=== PATIENT | male | born 1950 | race Caucasian/White ===

== ENCOUNTER 2019-04-14 00:35 | Day surgery (SDC) | payer MEDICARE, SELFPAY ==
[2019-04-06 12:32] VITALS: BMI 25.1
--- NOTE | 2019-04-13 10:49 | HP_ITS ---
DATE OF SERVICE: 04/14/2019 HISTORY: A 68-year-old who has a deviated septum for many years. He cannot breathe out of his nose. He snores loudly at night, he is on Plavix. REVIEW OF SYSTEMS: Unremarkable. Septum is deviated. PHYSICAL EXAMINATION: CHEST: Clear. HEART: Without murmurs. ABDOMEN: Soft. EXTREMITIES: Negative. PLAN: Stop his Plavix and set him up for a septoplasty. D I MT: Jimena
[2019-04-14] VITALS (9 sets, daily range): BP systolic 104–125; BP diastolic 53–70; PULSE 57–72; RESP 12–21; TEMP 36.4–36.6; O2SAT 98–100
--- NOTE | 2019-04-14 05:52 | WPDHPUPDATE1 ---
History and Physical Update Update Date/Time: 04/14/19 05:52 History and Physical has been reviewed, including an updated exam of the patient. There are NO changes in the patient's condition. Risks, benefits, and alternatives have been discussed and questions answered. Patient agrees to proceed with procedure.
[2019-04-14] MEDS: LACTATED RINGERS 1,000 ML 30 ML IV CONT (08:25)
--- NOTE | 2019-04-14 08:45 | P.PNAN_ITS ---
Anes - Initial Pre Proc Eval Procedure: Operation Date: 04/14/19 10:00 Proposed Procedures p Septoplasty - Keenan Gresham MD Date/Time: 04/14/19 08:45 Surgeon: Keenan Gresham MD Pre Op Diagnosis: nasal septal deviation Patient Data Age: 68 Gender: M Height: 5 ft 9 in Weight: 80.6 kg Allergies Allergy/AdvReac Type Severity Reaction Status Date / Time No Known Allergies Allergy Verified 04/14/19 08:12 Home Medications Medication Instructions Recorded Confirmed Type clopidogrel 75 mg tablet 75 mg PO DAILY 02/18/19 04/14/19 History metoprolol succinate 50 mg 50 mg PO DAILY 02/18/19 04/14/19 History tablet,extended release 24 hr niacin 1,000 mg tablet,extended 1,000 mg PO ONCE 02/18/19 04/14/19 History release 24 hr rosuvastatin 20 mg tablet 20 mg PO DAILY 02/18/19 04/14/19 History Patient hx anesthesia problems: none Family hx anesthesia problems: none [facility] Past Medical History Medical History (Updated 04/14/19 @ 08:46 by Scott Todd MD) Smoker Tobacco abuse Family History Family History Sibling Patient's sister is in good health Mother Family history of heart disease in male family member before age 55, Onset Age: 71 Patient's mother is Family history of cardiovascular disease Father Patient's father is Acute myocardial infarction Social History Social History Smoking status: Current every day smoker Alcohol intake: current Anes - Eval Final PreProcedure Day of Procedure 04/14/19 08:45 Patient weight: overweight Heart: regular rate and rhythm Lungs: decreased breath sounds Airway: Mallampati scale class 1 Neurological: alert and oriented Last oral intake: >/= 8 hours ASA classification: III Emergent: no Anesthetic plan: proceed Anesthesia type and monitoring: general ETT and standard monitoring Informed Consent: The patient's anesthetic plan and its attendant risks and benefits were discussed with the patient/family/POA. Questions were solicited and answers provided to the satisfaction of the patient/family/POA.
[2019-04-14] MEDS: METOPROLOL TARTRATE INJ 5 MG/5 ML VIAL 2.5 MG IV PUSH (08:56)
[2019-04-14] MEDS: LIDO 1%/EPINEPHRINE 1:100,000 20 ML VIAL INFILTRATE (10:07)
--- NOTE | 2019-04-14 10:21 | PM.OP ---
Procedure Note - Brief Procedure Note - Brief Date of procedure: 04/14/19 Pre-op diagnosis: nasal septal deviation Post-op diagnosis: same Procedure performed: Patient was prepped and draped in usual fashion after general anesthesia. The nose was injected with xylocaine with Adrenalin and packed with Neosporin Braydon-Synephrine on cottonoids. A right nancy transfixation was made anterior and posterior tunnel was elevated. The bony cartilage junction . The bony deviation was removed in its entirety. The middle turbinates were then medialized and uncinectomy was done on both sides the ethmoid bulla was opened with micro debride her. Tissue was removed the natural ostia of the maxillary sinus was opened and tissue was removed the nose was then packed with Surgicel patient awakened returned to recovery good condition. Anesthesia: GETA Surgeon: Keenan Gresham MD Packing: Yes Pathology: none sent Complications: No immediate complications Condition: stable Disposition: same day
== END 2019-04-14 11:47 | disposition home or self-care (01) ==
PROVIDERS: PCP Internal Medicine; Visit Provider Otolaryngology
PROC: (CPT 30520; principal; 2019-04-14 10:00)
DX: J34.2 Deviated nasal septum (principal); F17.210 Nicotine dependence, cigarettes, uncomplicated; Z79.02 Long term (current) use of antithrombotics/antiplatelets
CPT/HCPCS: 30520; A9270; J0131; J0330; J1100; J2250; J2405; J2704; J3010; J7120

== ENCOUNTER 2019-04-19 08:16 | Emergency (ER) | payer MEDICARE, SELFPAY ==
[2019-04-19 08:24] VITALS: BP 132/72; PULSE 70; RESP 18; TEMP 37.1; O2SAT 100
--- NOTE | 2019-04-19 08:25 | ED.EPISTAXIS ---
HPI - Epistaxis General Chief complaint: Epistaxis Stated complaint: PERSISTENT EPISTAXIS S/P SURGERY Source: patient Mode of arrival: ambulatory Limitations: no limitations History of Present Illness HPI Narrative: A 68 y/o male presents to the ED with c/o epistaxis. Pt states that the epistaxis started at 0500 this morning and has been constant since. He adds that he had a nasal surgery yesterday. Pt has a PMHx of [place], hyperlipidemia, HTN, and cardiac catheterization and is currently on a blood thinner. complaint: epistaxis Onset (ago): hour(s) (3.5) Duration: constant Context: recent surgery/procedure (Nasal surgery) Related Data Home Medications Medication Instructions Recorded Confirmed clopidogrel 75 mg tablet 75 mg PO DAILY 02/18/19 04/14/19 metoprolol succinate 50 mg 50 mg PO DAILY 02/18/19 04/14/19 tablet,extended release 24 hr niacin 1,000 mg tablet,extended 1,000 mg PO ONCE 02/18/19 04/14/19 release 24 hr rosuvastatin 20 mg tablet 20 mg PO DAILY 02/18/19 04/14/19 Allergies Allergy/AdvReac Type Severity Reaction Status Date / Time No Known Allergies Allergy Verified 04/19/19 08:28 Review of Systems Review of Systems: All systems reviewed & are unremarkable except as noted in HPI and below ENT: Reports epistaxis PMFSH Past Medical History Medical History (Updated 04/19/19 @ 08:28 by Karrie Pinzon) Atherosclerotic heart disease of [place] coronary artery without angina pectoris Bronchitis Enlarged prostate without lower urinary tract symptoms (luts) Erectile dysfunction Essential (primary) hypertension Finger fracture GERD without esophagitis Heart attack History of TIA (transient ischemic attack) Hyperlipidemia Smoker Tobacco abuse Wrist fracture Surgical History Surgical History (Updated 04/19/19 @ 08:28 by Karrie Pinzon) History of cardiac catheterization History of tonsillectomy S/P CABG x 3 Family History Family History Sibling Patient's sister is in good health Mother Family history of heart disease in male family member before age 55, Onset Age: 71 Patient's mother is Family history of cardiovascular disease Father Patient's father is Acute myocardial infarction Social History Social History (Updated 04/19/19 @ 08:30 by Karrie Pinzon) Smoking packs per day: 1 Smoking cigarettes per day: 20.0 Smoking status: Former smoker Tobacco type: cigarettes Second hand tobacco smoke exposure: Yes Smoking end date: 03/18/73 Alcohol intake: current Gender identity (if verbalized by the patient): Male Course Vital Signs Vital signs: Vital Signs Temperature 37.1 C 04/19/19 08:24 Pulse Rate 70 04/19/19 08:24 Respiratory Rate 18 04/19/19 08:24 Blood Pressure 132/72 04/19/19 08:24 Pulse Oximetry 100 04/19/19 08:24 Temperature 37.1 C 04/19/19 08:24 Pulse Rate 70 04/19/19 08:24 Respiratory Rate 18 04/19/19 08:24 Blood Pressure 132/72 04/19/19 08:24 Pulse Oximetry 100 04/19/19 08:24 Discharge Plan Discharge Prescriptions: No Action clopidogrel 75 mg tablet 75 mg PO DAILY RF: 0 metoprolol succinate 50 mg tablet extended release 24 hr 50 mg PO DAILY RF: 0 niacin [Niaspan Extended-Release] 1,000 mg tablet extended release 24 hr 1,000 mg PO ONCE RF: 0 rosuvastatin 20 mg tablet 20 mg PO DAILY RF: 0 acetaminophen-codeine 300-30 mg tablet 1 tablet PO Q6H PRN (Reason: pain) Qty: 30 RF: 0
--- NOTE | 2019-04-19 09:45 | ED.EPISTAXIS ---
HPI - Epistaxis General Chief complaint: Epistaxis Stated complaint: PERSISTENT EPISTAXIS S/P SURGERY Time Seen by Provider: 04/19/19 09:02 Source: patient Mode of arrival: ambulatory Limitations: no limitations History of Present Illness HPI Narrative: This is a 68 year old male that presents to the ER for epistaxis since 5 this morning. Reports when he woke up he noticed that his nose was bleeding. Reports he was unable to get the bleeding under control so he came to the ED. Reports he recently had his septum repaired by Dr. Gresham 5 days ago. Reports he re-started his Plavix yesterday and did blow his nose once. Denies fevers. Related Data Home Medications Medication Instructions Recorded Confirmed clopidogrel 75 mg tablet 75 mg PO DAILY 02/18/19 04/14/19 metoprolol succinate 50 mg 50 mg PO DAILY 02/18/19 04/14/19 tablet,extended release 24 hr niacin 1,000 mg tablet,extended 1,000 mg PO ONCE 02/18/19 04/14/19 release 24 hr rosuvastatin 20 mg tablet 20 mg PO DAILY 02/18/19 04/14/19 Allergies Allergy/AdvReac Type Severity Reaction Status Date / Time No Known Allergies Allergy Verified 04/19/19 08:28 Review of Systems Review of Systems: Narrative: CONSTITUTIONAL: Denies fever ENT: Reports epistaxis, congestion All systems reviewed & are unremarkable except as noted in HPI and below PMFSH Past Medical History Medical History (Updated 04/19/19 @ 14:38 by Esther Littlejohn PA-C) Atherosclerotic heart disease of [place] coronary artery without angina pectoris Bronchitis Enlarged prostate without lower urinary tract symptoms (luts) Erectile dysfunction Essential (primary) hypertension Finger fracture GERD without esophagitis Heart attack History of TIA (transient ischemic attack) Hyperlipidemia Smoker Tobacco abuse Wrist fracture Surgical History Surgical History (Updated 04/19/19 @ 08:28 by Karrie Pinzon) History of cardiac catheterization History of tonsillectomy S/P CABG x 3 Family History Family History Sibling Patient's sister is in good health Mother Family history of heart disease in male family member before age 55, Onset Age: 71 Patient's mother is Family history of cardiovascular disease Father Patient's father is Acute myocardial infarction Social History Social History (Updated 04/19/19 @ 08:30 by Karrie Pinzon) Smoking packs per day: 1 Smoking cigarettes per day: 20.0 Smoking status: Former smoker Tobacco type: cigarettes Second hand tobacco smoke exposure: Yes Smoking end date: 03/18/73 Alcohol intake: current Gender identity (if verbalized by the patient): Male Exam Narrative: Exam Narrative: GENERAL: Well-appearing, well-nourished, and in no acute distress. HEAD: Normocephalic, atraumatic. EYES: EOMI. ENT: Right-sided epistaxis. Mucous membranes moist. Mild amount of blood in the posterior oropharynx NECK: Supple. No adenopathy or masses. EXTREMITIES: Normal range of motion. No edema. SKIN: Warm, dry, no rash. NEURO: No focal deficits. Alert and oriented x3. PSYCH: Normal mood and affect Course Consultations Consultation #1: Spoke with Dr. Gresham about patient work-up who will see him in clinic tomorrow Date: 04/19/19 Time: 14:35 Vital Signs Vital signs: Vital Signs Temperature 98.8 F 04/19/19 08:24 Pulse Rate 70 04/19/19 08:24 Respiratory Rate 18 04/19/19 08:24 Blood Pressure 132/72 04/19/19 08:24 Pulse Oximetry 100 04/19/19 08:24 Temperature 98.8 F 04/19/19 08:24 Pulse Rate 79 04/19/19 13:18 Respiratory Rate 18 04/19/19 13:18 Blood Pressure 139/63 04/19/19 13:18 Pulse Oximetry 98 04/19/19 13:18 Procedures Epistaxis Control right: Epistaxis Control Date: 04/19/19 Epistaxis Control Time: 14:13 Time Out Performed: Yes Nose Prepped With: oxymetazoline Direct Inspection: unable to visualize
[2019-04-19 09:51] LABS: Basophils Percent Auto 0.4 % (0.2-1.2); Eosinophils Absolute Auto 0.1 K/mm3 (0-0.3); Hematocrit 43.9 % (42.0-52.0); Hemoglobin 14.4 g/dL (14.0-18.0); Immature Granulocyte Absolute 0.03 K/mm3 (0.00-0.031); Immature Granulocyte Percent A 0.3 % (0-0.5); Lymphocytes Absolute Auto 1.27 K/mm3 (0.9-3.2); Lymphocytes Percent Auto 13.8 % (18.3-44.2); Mean Corpuscular HGB Conc 32.8 g/dl (32-36); Mean Corpuscular Hemoglobin 31.6 pg (26-34); Mean Corpuscular Volume 96.3 fl (80-100); Mean Platelet Volume 10.1 fl (7.4-10.4); Monocytes Absolute Auto 0.6 K/mm3 (0.1-0.6); Monocytes Percent Auto 6.8 % (2.6-8.5); Neutrophils Absolute Auto 7.1 K/mm3 (1.3-6.7); Neutrophils Percent Auto 77.7 % (45.5-73.1); Platelet Count Result 213 k/mm3 (150-375); Red Blood Count 4.56 M/mm3 (4.6-6.20); Red Cell Distribution Width 12.7 % (11.5-14.5); White Blood Count 9.2 K/mm3 (4.5-10.0)
[2019-04-19 09:58] LABS: Prothrombin Time 12.7 Seconds (11.1-14.7)
[2019-04-19 09:59] LABS: Partial Thromboplastin Time 27.5 SECONDS (22.3-36.8)
[2019-04-19 10:10] VITALS: BP 124/60; PULSE 72; RESP 16; O2SAT 95
[2019-04-19 13:18] VITALS: BP 139/63; PULSE 79; RESP 18; O2SAT 98
--- NOTE | 2019-04-19 13:19 | PC.NURSE ---
Esther placing 2nd Rhino rocket at this time
[2019-04-19 14:58] VITALS: BP 135/65; PULSE 77; RESP 18; O2SAT 99
== END 2019-04-19 14:59 | disposition home or self-care (01) ==
PROVIDERS: Physician Assistant; Emergency Provider Emergency Medicine; PCP Internal Medicine
DX: R04.0 Epistaxis (principal); N40.1 Benign prostatic hyperplasia with lower urinary tract symptoms; I10 Essential (primary) hypertension; E78.5 Hyperlipidemia, unspecified; K21.9 Gastro-esophageal reflux disease without esophagitis; I25.2 Old myocardial infarction; Z86.73 Personal history of transient ischemic attack (TIA), and cerebral infarction without residual deficits; Z95.1 Presence of aortocoronary bypass graft; Z79.02 Long term (current) use of antithrombotics/antiplatelets; Z98.890 Other specified postprocedural states; I25.10 Atherosclerotic heart disease of native coronary artery without angina pectoris
CPT/HCPCS: 30903; 36415; 85025; 85610; 85730; 99283; A9270

== ENCOUNTER 2019-04-19 23:27 | Emergency (ER) | payer MEDICARE, SELFPAY ==
[2019-04-19 23:29] VITALS: BP 131/68; PULSE 100; RESP 18; TEMP 36.7; O2SAT 99
[2019-04-20 00:43] VITALS: BP 121/67; PULSE 106; RESP 18; O2SAT 99
--- NOTE | 2019-04-20 00:53 | ED.EPISTAXIS ---
HPI - Epistaxis General Chief complaint: Epistaxis Stated complaint: nose bleed Time Seen by Provider: 04/20/19 00:55 Source: patient and RN notes reviewed Mode of arrival: ambulatory Limitations: no limitations History of Present Illness HPI Narrative: Pt is a 68 y/o male who presents to the ED with c/o epistaxis which began at 2200 tonight. Pt states he has had nasal surgery done yesterday at [facility]. He reports he woke up at 0500 this morning with an epistaxis that was not alleviated throughout the day. Pt states he was seen at [place] ED at 0824 this morning for the epistaxis. A b/l nasal packing was set in place and the pt was discharged. However, the pt reports he began to experience the epistaxis again at 2200 tonight, due to him sneezing out one of the packings in his nasal cavity. Pt reports he stopped taking his anticoagulants a week before his surgery 6 days ago. He states he started taking the anticoagulants the day after his surgery. Pt reports lightheadedness and vomiting. He denies any bleeding currently in the ED bed. complaint: epistaxis Location: bilateral nostril Onset (ago): hour(s) (2200 tonight) Duration: constant Context: other (post-surgical complication) Associated symptoms: vomiting and other (lightheadedness) Treatment prior to arrival: other (nasal packing in place in the right nostril) Related Data Home Medications Medication Instructions Recorded Confirmed clopidogrel 75 mg tablet 75 mg PO DAILY 02/18/19 04/14/19 metoprolol succinate 50 mg 50 mg PO DAILY 02/18/19 04/14/19 tablet,extended release 24 hr niacin 1,000 mg tablet,extended 1,000 mg PO ONCE 02/18/19 04/14/19 release 24 hr rosuvastatin 20 mg tablet 20 mg PO DAILY 02/18/19 04/14/19 Allergies Allergy/AdvReac Type Severity Reaction Status Date / Time No Known Allergies Allergy Verified 04/19/19 08:28 Review of Systems Review of Systems: All systems reviewed & are unremarkable except as noted in HPI and below ENT: Reports epistaxis Gastrointestinal: Gastrointestinal: Reports vomiting Neurologic: Reports other (lightheadedness) [facility] Past Medical History Medical History (Updated 04/20/19 @ 03:15 by Dedrick Salamanca MD) Atherosclerotic heart disease of [place] coronary artery without angina pectoris Bronchitis Enlarged prostate without lower urinary tract symptoms (luts) Erectile dysfunction Essential (primary) hypertension Finger fracture GERD without esophagitis Heart attack History of TIA (transient ischemic attack) Hyperlipidemia Smoker Tobacco abuse Wrist fracture Surgical History Surgical History (Updated 04/19/19 @ 08:28 by Karrie Pinzon) History of cardiac catheterization History of tonsillectomy S/P CABG x 3 Social History Social History (Updated 04/19/19 @ 08:30 by Karrie Pinzon) Smoking packs per day: 1 Smoking cigarettes per day: 20.0 Smoking status: Former smoker Tobacco type: cigarettes Second hand tobacco smoke exposure: Yes Smoking end date: 03/18/73 Alcohol intake: current Gender identity (if verbalized by the patient): Male Exam Narrative: Exam Narrative: Constitutional: Healthy appearing, no acute distress, well nourished. HENMT: Lips normal, moist mucous membranes. Dried blood in both nostrils. Nasal packing in place in right nostril. Eyes: Conjunctive normal, PERRL Resp: Normal respiratory effect, clear to auscultation bilaterally. Cardio: Regular rate, rhythm, no murmurs. GI: Soft, non-tender, normal bowel sounds. Back/Spine/Pelvis: Full ROM Skin: Normal color, dry skin, warm Neuro: Oriented x 3, alert, normal speech Extremities: Full ROM Psych: Mental status grossly normal, normal affect. Course Vital Signs Vital signs: Vital Signs Temperature 36.7 C 04/19/19 23:29 Pulse Rate 100 04/19/19 23:29 Respiratory Rate 18 04/19/19 23:29 Blood Pressure 131/68 04/19/19 23:29 Pulse Oximetry 99 04/19/19 23:29 Temperature 36.7 C
[2019-04-20 01:28] VITALS: BP 123/68; PULSE 93; RESP 16; O2SAT 98
[2019-04-20 02:10] VITALS: BP 135/82; PULSE 99; RESP 18; O2SAT 98
--- NOTE | 2019-04-20 03:10 | PC.NURSE ---
pt states his nose is in 9/10 pain at this time. md notified.
[2019-04-20 03:30] VITALS: BP 123/54; PULSE 72; RESP 16; TEMP 36.7; O2SAT 99
== END 2019-04-20 03:32 | disposition home or self-care (01) ==
PROVIDERS: Emergency Provider Emergency Medicine; PCP Internal Medicine
DX: R04.0 Epistaxis (principal); Z98.890 Other specified postprocedural states; I10 Essential (primary) hypertension; E78.5 Hyperlipidemia, unspecified; K21.9 Gastro-esophageal reflux disease without esophagitis; I25.10 Atherosclerotic heart disease of native coronary artery without angina pectoris; I25.2 Old myocardial infarction; Z86.73 Personal history of transient ischemic attack (TIA), and cerebral infarction without residual deficits; Z95.1 Presence of aortocoronary bypass graft; N40.1 Benign prostatic hyperplasia with lower urinary tract symptoms; Z87.891 Personal history of nicotine dependence; Z79.01 Long term (current) use of anticoagulants
CPT/HCPCS: 30901; 30903; 36415; 85025; 85610; 85730; 99283; A9270

== ENCOUNTER 2019-08-18 07:48 | Outpatient (CLI) | payer MEDICARE, SELFPAY ==
[2019-08-18 08:42] LABS: LDL Cholesterol Direct 60 mg/dL
[2019-08-18 08:54] LABS: Alanine Aminotransferase 28 U/L (4-50); Albumin Level 4.6 g/dL (3.5-5.1); Alkaline Phosphatase 92 U/L (38-126); Aspartate Amino Transferase 37 U/L (17-59); Bilirubin,Total 1.3 mg/dL (0.2-1.3); Blood Urea Nitrogen 7 mg/dL (9-20); Carbon Dioxide 25 mmol/L (22-30); Chloride 100 mmol/L (98-107); Cholesterol 132 mg/dL (0-200); Estimated Glomerular Filt Rate > 60; Glucose 113 mg/dL (75-110); HDL Direct 55 mg/dL; Potassium 4.2 mmol/L (3.4-5.0); Sodium 133 mmol/L (137-145); Triglycerides 86 mg/dL (<150)
[2019-08-18 09:01] LABS: Prostate Specific Antigen 2.5 ng/mL (< OR = 4.0)
== END 2019-08-18 07:49 | disposition home or self-care (01) ==
LOC: ANHLAB 07:52
PROVIDERS: PCP Internal Medicine; Visit Provider Internal Medicine
DX: I25.10 Atherosclerotic heart disease of native coronary artery without angina pectoris (principal); Z51.81 Encounter for therapeutic drug level monitoring; E78.5 Hyperlipidemia, unspecified; Z12.5 Encounter for screening for malignant neoplasm of prostate
CPT/HCPCS: 36415; 80053; 80061; 84153; G0103

== ENCOUNTER 2020-02-26 07:22 | Outpatient (CLI) | payer MEDICARE, SELFPAY ==
[2020-02-26 08:10] LABS: Alanine Aminotransferase 38 U/L (4-50); Albumin Level 4.3 g/dL (3.5-5.1); Alkaline Phosphatase 70 U/L (38-126); Anion Gap 5 mmol/L (8-16); Aspartate Amino Transferase 38 U/L (17-59); Bilirubin,Total 0.9 mg/dL (0.2-1.3); Blood Urea Nitrogen 9 mg/dL (9-20); Calcium 9.4 mg/dL (8.4-10.2); Carbon Dioxide 31 mmol/L (22-30); Chloride 100 mmol/L (98-107); Cholesterol 163 mg/dL (0-200); Estimated Glomerular Filt Rate > 60; Glucose 103 mg/dL (75-110); HDL Direct 49 mg/dL; Potassium 4.4 mmol/L (3.4-5.0); Sodium 136 mmol/L (137-145); Triglycerides 146 mg/dL (<150)
[2020-02-26 08:21] LABS: LDL Cholesterol Direct 91 mg/dL
== END 2020-02-26 07:23 | disposition home or self-care (01) ==
PROVIDERS: PCP Internal Medicine; Visit Provider Internal Medicine
DX: Z51.81 Encounter for therapeutic drug level monitoring (principal); I10 Essential (primary) hypertension; E78.5 Hyperlipidemia, unspecified
CPT/HCPCS: 36415; 80053; 80061

== ENCOUNTER 2020-03-03 14:33 | Outpatient (CLI) | payer MEDICARE, SELFPAY ==
--- NOTE | ~2020-03-03 | CT_ITS ---
EXAMINATION: CT lung screening DATE: 03/03/2020 14:48 INDICATION: Personal history of nicotine dependence TECHNIQUE: Computed tomography (CT) of the chest was performed without intravenous contrast. The dose -length product was 114.67 mGy-cm. Automated exposure control and iterative reconstruction technique were employed. COMPARISON: None FINDINGS: There is atherosclerosis. Status post median sternotomy for CABG. No significant pleural or pericardial effusion. No thoracic lymphadenopathy. There is a 4 mm right upper lobe nodule, image 18. No endobronchial lesions. There is a 2 mm fissural nodule, axial image 61. There is a 2 mm left apical nodule, image 11. No focal airspace disease. No pneumothorax. Mild emphysema. No acute osseous abnormality. No sclerotic or lytic lesions are identif ied. IMPRESSION: 1. Lung-RADS category 2: Benign appearance or behavior. Continue annual screening with noncontrast lo w-dose chest CT in 12 months. Reviewed, dictated and finalized at location A. [employer]ER IMPRESSION: 1. Lung-RADS category 2: Benign appearance or behavior. Continue annual screeni ng with noncontrast low-dose chest CT in 12 months.
== END 2020-03-03 14:34 | disposition home or self-care (01) ==
PROVIDERS: PCP Internal Medicine; Visit Provider Nurse Practitioner
DX: Z12.2 Encounter for screening for malignant neoplasm of respiratory organs (principal); Z87.891 Personal history of nicotine dependence
CPT/HCPCS: G0297

== ENCOUNTER 2020-08-29 08:29 | Outpatient (CLI) | payer MEDICARE, SELFPAY ==
[2020-08-29 09:07] LABS: Alanine Aminotransferase 29 U/L (4-50); Albumin Level 4.4 g/dL (3.5-5.1); Alkaline Phosphatase 69 U/L (38-126); Anion Gap 9 mmol/L (8-16); Aspartate Amino Transferase 36 U/L (17-59); Bilirubin,Total 1.1 mg/dL (0.2-1.3); Blood Urea Nitrogen 8 mg/dL (9-20); Calcium 9.4 mg/dL (8.4-10.2); Carbon Dioxide 27 mmol/L (22-30); Chloride 103 mmol/L (98-107); Cholesterol 162 mg/dL (0-200); Estimated Glomerular Filt Rate > 60; Glucose 110 mg/dL (75-110); HDL Direct 54 mg/dL; Potassium 4.4 mmol/L (3.4-5.0); Sodium 139 mmol/L (137-145); Triglycerides 155 mg/dL (<150)
[2020-08-29 09:17] LABS: LDL Cholesterol Direct 75 mg/dL
[2020-08-29 09:37] LABS: Prostate Specific Antigen 1.9 ng/mL (< OR = 4.0)
== END 2020-08-29 08:30 | disposition home or self-care (01) ==
PROVIDERS: PCP Internal Medicine; Visit Provider Nurse Practitioner
DX: E78.5 Hyperlipidemia, unspecified (principal); Z12.5 Encounter for screening for malignant neoplasm of prostate
CPT/HCPCS: 36415; 80053; 80061; 84153; G0103

== ENCOUNTER 2021-03-02 10:13 | Outpatient (CLI) | payer MEDICARE, SELFPAY ==
[2021-03-02 10:51] LABS: Alanine Aminotransferase 34 U/L (4-50); Albumin Level 4.6 g/dL (3.5-5.1); Alkaline Phosphatase 85 U/L (38-126); Anion Gap 4 mmol/L (8-16); Aspartate Amino Transferase 31 U/L (17-59); Bilirubin,Total 0.7 mg/dL (0.2-1.3); Blood Urea Nitrogen 6 mg/dL (9-20); Calcium 9.4 mg/dL (8.4-10.2); Carbon Dioxide 27 mmol/L (22-30); Chloride 100 mmol/L (98-107); Cholesterol 172 mg/dL (0-200); Estimated Glomerular Filt Rate > 60; Glucose 111 mg/dL (65-110); HDL Direct 47 mg/dL; Potassium 4.2 mmol/L (3.4-5.0); Sodium 131 mmol/L (137-145); Triglycerides 262 mg/dL (<150)
[2021-03-02 11:02] LABS: LDL Cholesterol Direct 84 mg/dL
== END 2021-03-02 10:14 | disposition home or self-care (01) ==
PROVIDERS: PCP Internal Medicine; Visit Provider Internal Medicine
DX: E78.5 Hyperlipidemia, unspecified (principal); I10 Essential (primary) hypertension; Z51.81 Encounter for therapeutic drug level monitoring
CPT/HCPCS: 36415; 80053; 80061

== ENCOUNTER 2021-09-08 10:09 | Outpatient (CLI) | payer MEDICARE, SELFPAY ==
[2021-09-08 10:50] LABS: Alanine Aminotransferase 28 U/L (6-50); Albumin Level 4.4 g/dL (3.5-5.1); Alkaline Phosphatase 82 U/L (38-126); Anion Gap 7 mmol/L (8-16); Aspartate Amino Transferase 27 U/L (17-59); Bilirubin,Total 0.7 mg/dL (0.2-1.3); Blood Urea Nitrogen 10 mg/dL (9-20); Calcium 9.1 mg/dL (8.4-10.2); Carbon Dioxide 25 mmol/L (22-30); Chloride 104 mmol/L (98-107); Cholesterol 172 mg/dL (0-200); Estimated Glomerular Filt Rate > 60; Glucose 111 mg/dL (65-110); HDL Direct 51 mg/dL; Potassium 4.2 mmol/L (3.4-5.0); Sodium 136 mmol/L (137-145); Triglycerides 172 mg/dL (<150)
[2021-09-08 11:01] LABS: LDL Cholesterol Direct 86 mg/dL
[2021-09-08 11:21] LABS: Prostate Specific Antigen 2.1 ng/mL (< OR = 4.0)
== END 2021-09-08 10:10 | disposition home or self-care (01) ==
LOC: ANHLAB 10:16
PROVIDERS: PCP Internal Medicine; Visit Provider Nurse Practitioner
DX: E78.5 Hyperlipidemia, unspecified (principal); N40.0 Benign prostatic hyperplasia without lower urinary tract symptoms
CPT/HCPCS: 36415; 80053; 80061; 84153

== ENCOUNTER 2022-03-16 09:21 | Outpatient (CLI) | payer MEDICARE, SELFPAY ==
[2022-03-16 10:15] LABS: Alanine Aminotransferase 45 U/L (6-50); Albumin Level 4.5 g/dL (3.5-5.1); Alkaline Phosphatase 90 U/L (38-126); Anion Gap 8 mmol/L (8-16); Aspartate Amino Transferase 34 U/L (17-59); Blood Urea Nitrogen 8 mg/dL (9-20); Carbon Dioxide 27 mmol/L (22-30); Chloride 100 mmol/L (98-107); Cholesterol 156 mg/dL (0-200); Estimated Glomerular Filt Rate > 60; Glucose 113 mg/dL (65-110); HDL Direct 42 mg/dL; Potassium 4.5 mmol/L (3.4-5.0); Sodium 135 mmol/L (137-145); Triglycerides 191 mg/dL (<150)
[2022-03-16 10:26] LABS: LDL Cholesterol Direct 76 mg/dL
[2022-03-16 10:48] LABS: Hemoglobin A1C 5.9 % (<5.7)
== END 2022-03-16 09:22 | disposition home or self-care (01) ==
LOC: ANHLAB 09:23
PROVIDERS: PCP Internal Medicine; Visit Provider Nurse Practitioner
DX: E78.5 Hyperlipidemia, unspecified (principal); R73.01 Impaired fasting glucose
CPT/HCPCS: 36415; 80053; 80061; 83036

== ENCOUNTER 2022-09-20 09:40 | Outpatient (CLI) | payer MEDICARE, SELFPAY ==
[2022-09-20 10:44] LABS: Alanine Aminotransferase 50 U/L (6-50); Albumin Level 4.4 g/dL (3.5-5.1); Alkaline Phosphatase 66 U/L (38-126); Anion Gap 6 mmol/L (8-16); Aspartate Amino Transferase 37 U/L (17-59); Bilirubin,Total 1.1 mg/dL (0.2-1.3); Blood Urea Nitrogen 7 mg/dL (9-20); Calcium 8.9 mg/dL (8.4-10.2); Carbon Dioxide 27 mmol/L (22-30); Chloride 100 mmol/L (98-107); Cholesterol 152 mg/dL (0-200); Estimated Glomerular Filt Rate > 60; Glucose 104 mg/dL (65-110); HDL Direct 38 mg/dL; Potassium 3.9 mmol/L (3.4-5.0); Sodium 133 mmol/L (137-145); Triglycerides 209 mg/dL (<150)
[2022-09-20 10:47] LABS: Hemoglobin A1C 5.8 % (<5.7)
[2022-09-20 10:54] LABS: LDL Cholesterol Direct 80 mg/dL
[2022-09-20 11:15] LABS: Prostate Specific Antigen 2.2 ng/mL (< OR = 4.0)
== END 2022-09-20 09:41 | disposition home or self-care (01) ==
PROVIDERS: PCP Internal Medicine; Visit Provider Nurse Practitioner
DX: E78.5 Hyperlipidemia, unspecified (principal); E11.9 Type 2 diabetes mellitus without complications; Z12.5 Encounter for screening for malignant neoplasm of prostate
CPT/HCPCS: 36415; 80053; 80061; 83036; 84153; G0103

== ENCOUNTER 2022-10-05 09:33 | Outpatient (CLI) | payer MEDICARE, SELFPAY ==
--- NOTE | ~2022-10-05 | CT_ITS ---
CT Scan of the Chest without Contrast: Clinical Indication: Lung cancer screening, personal history of nicotine dependence Technique: Contiguous sections were acquired throughout the chest without intravenous contrast. Dose reduction technique was used on this scan by utilizing automated exposure control and iterative recon struction technique. The dose-length product (DLP) was 170.47 mGy-cm. COMPARISON: 03/03/2020 Findings: There is no evidence of any significant mediastinal, hilar or axillary lymphadenopathy. There atheros clerotic changes of the aorta and coronary arteries. There is no evidence of pleural or pericardial effusion. Stable 3 mm right apical pulmonary nodule. No new pulmonary nodule identified. Images through the upper abdomen reveal no abnormalities. Impression: Lung RADS 2: Benign appearance. 12 month follow-up screening CT advised. Reviewed, dictated and finalized at [facility]. Impression: Lung RADS 2: Benign appearance. 12 month follow-up screening CT advised.
== END 2022-10-05 09:34 | disposition home or self-care (01) ==
PROVIDERS: PCP Internal Medicine; Visit Provider Family Medicine
DX: Z12.2 Encounter for screening for malignant neoplasm of respiratory organs (principal); Z87.891 Personal history of nicotine dependence
CPT/HCPCS: 71271

== ENCOUNTER 2022-11-07 10:00 | Outpatient (RCR) | payer MEDICARE, SELFPAY ==
--- NOTE | 2022-10-09 11:59 | OPREHPOC ---
Outpatient Therapy Plan of Care This is a Multidisciplinary Plan of Care that may contain components documented by all disciplines (PT, OT, and ST.) PT Problem 1 PT Problem #1 Knowledge Deficit PT Goal 1 Goal Independent with HEP Target Visit 8 PT Problem 2 PT Problem #2 Pain PT Goal 1 Goal decrease pain to no worse than 4/10 Target Visit 8 PT Goal 2 Goal centralization of all pain Target Visit 8 PT Problem 3 PT Problem #3 Impaired Range of Motion PT Goal 1 Goal increase cervical flexion and extension to 30 degrees Target Visit 8 PT Goal 2 Goal Increase JENNIFER rotation to 65 degrees Target Visit 8 PT Problem 4 PT Problem #4 Impaired Strength PT Goal 1 Goal Increase JENNIFER scapular strength to 4+/5 Target Visit 8
--- NOTE | 2022-10-09 11:59 | PTOPEVAL1 ---
Assessment and note entered by Marco Law, PT Evaluation Information Assessment Status Evaluation Diagnosis other muscle spasm, pain in thoracic spine Onset 1 year ago, increasing in symptoms 1 month ago Subjective Information Patient reports 1 year ago waking up with a stiff neck and did not think much of it, but it has not gone away and now it is going down the R arm on occasion into the scapula and down his spine. Patient reports pain increases with long rides in cars and when sitting in a chair where the arm is not supported at the right height. States no weakness or N/T and is using Tylenol and Hempvana which both help, but the relief does not last. No imaging done yet on the neck or shoulder. Patient has decreased vision and cannot drive. Reported Pain Level Pain Score 8: Self Report Assessment PT Clinical Summary Antione is a 72 year old male coming into the clinic with a diagnosis of muscle spasm and pain in thoracic spine. Patient has tightness in his upper traps along with weakness in his other scapular stabilizers. Patient has rounded shoulders and a forward head along with decreased cervical range of motion. Recommend continued physical therapy to address postural alignment along with stretching and strengthening. Manual therapy and modalities as needed for pain. Plan of Care Interventions Electrical Stimulation,Gait Training,Hot Pack/Cold Pack,Manual Therapy,Neuro Re-education,Patient/ Caregiver Education,Therapeutic Activities, Therapeutic Exercise,Ultrasound Other Interventions cupping, taping, IASTM PT Services Indicated Yes Treatment Frequency and 1-2x/wk for 8 visits Duration These treatments will address the objective and functional deficits as defined above. The patient will be advanced safely and appropriately in order for the patient to progress towards his/her prior level of function. Additional exercises will be introduced and as well as a comprehensive home exercise program upon discharge, if needed, ?to ensure carryover of functional gains achieved in the clinic. This treatment plan has been reviewed and agreement upon by the patient.
--- NOTE | 2022-11-07 10:45 | PTOPDC ---
Assessment and note entered by Marco Law, PT Evaluation Information Assessment Status Discharge Diagnosis other muscle pain, spasm in the thoracic spine Onset 1 year ago, increasing in symptoms 1 month ago Subjective Information Patient reports he has been faithful with his exercises and that he is able to move his neck better, but there is no improvement in symptoms and even feels to be radiating further down his R UE. Patient would like to get imaging done. Reported Pain Level Pain Score 6: Self Report Assessment PT Clinical Summary Antione is a 72 year old male coming into the clinic with a diagnosis of other muscle spasm and pain in thoracic spine. Patient was evaluated on 10/09/22 and has attended 8 sessions. Patient has increase in scapular strength of the middle traps and improved flexion and extension in the neck. No improvements with cervical rotation or lateral flexion along with strength in the lower traps. Recommend going back to doctor and doing imaging of the cervical spine to rule out nerve impingement causing the radiating symptoms. Discharge from physical therapy at this time until after imaging if further therapy is warranted. Plan of Care PT Services Indicated No
== END 2022-11-08 13:32 | disposition home or self-care (01) ==
LOC: ANHPT 10:00
PROVIDERS: PCP Internal Medicine; Visit Provider Family Medicine
DX: M62.838 Other muscle spasm (principal); M54.6 Pain in thoracic spine; M62.830 Muscle spasm of back
CPT/HCPCS: 97012; 97014; 97110; 97140; 97161; G0283

== ENCOUNTER 2023-03-29 10:36 | Outpatient (CLI) | payer MEDICARE, SELFPAY ==
[2023-03-29 11:32] LABS: Alanine Aminotransferase 78 U/L (6-50); Albumin Level 4.4 g/dL (3.5-5.1); Alkaline Phosphatase 81 U/L (38-126); Anion Gap 8 mmol/L (8-16); Aspartate Amino Transferase 61 U/L (17-59); Bilirubin,Total 1.4 mg/dL (0.2-1.3); Blood Urea Nitrogen 11 mg/dL (9-20); Calcium 9.2 mg/dL (8.4-10.2); Carbon Dioxide 30 mmol/L (22-30); Chloride 99 mmol/L (98-107); Cholesterol 168 mg/dL (0-200); Estimated Glomerular Filt Rate > 60; Glucose 112 mg/dL (65-110); HDL Direct 40 mg/dL; Potassium 4.8 mmol/L (3.4-5.0); Sodium 137 mmol/L (137-145); Triglycerides 219 mg/dL (<150)
[2023-03-29 11:40] LABS: LDL Cholesterol Direct 95 mg/dL
[2023-03-29 11:59] LABS: Prostate Specific Antigen 2.1 ng/mL (< OR = 4.0)
== END 2023-03-29 10:37 | disposition home or self-care (01) ==
LOC: ANHLAB 10:38
PROVIDERS: PCP Family Medicine; Visit Provider Family Medicine
DX: F41.9 Anxiety disorder, unspecified (principal); I10 Essential (primary) hypertension; I25.10 Atherosclerotic heart disease of native coronary artery without angina pectoris; K21.9 Gastro-esophageal reflux disease without esophagitis; M54.6 Pain in thoracic spine; M62.830 Muscle spasm of back; M62.838 Other muscle spasm; N52.9 Male erectile dysfunction, unspecified; Z12.5 Encounter for screening for malignant neoplasm of prostate; Z51.81 Encounter for therapeutic drug level monitoring; Z86.73 Personal history of transient ischemic attack (TIA), and cerebral infarction without residual deficits; Z95.1 Presence of aortocoronary bypass graft
CPT/HCPCS: 36415; 80053; 80061; 84153; G0103

== ENCOUNTER 2023-04-11 09:43 | Outpatient (CLI) | payer MEDICARE, SELFPAY ==
[2023-04-11 10:21] LABS: Hematocrit 49.2 % (42.0-52.0); Hemoglobin 15.6 g/dL (14.0-18.0); Mean Corpuscular HGB Conc 31.7 g/dl (32-36); Mean Corpuscular Hemoglobin 30.3 pg (26-34); Mean Corpuscular Volume 95.5 fl (80-100); Mean Platelet Volume 10.3 fl (7.4-10.4); Platelet Count Result 176 k/mm3 (150-375); Red Blood Count 5.15 M/mm3 (4.6-6.20); Red Cell Distribution Width 12.8 % (11.5-14.5); White Blood Count 5.6 K/mm3 (4.5-10.0)
[2023-04-11 10:31] LABS: Alanine Aminotransferase 70 U/L (6-50); Albumin Level 4.6 g/dL (3.5-5.1); Alkaline Phosphatase 84 U/L (38-126); Aspartate Amino Transferase 50 U/L (17-59); Bilirubin,Total 1.1 mg/dL (0.2-1.3)
[2023-04-11 10:37] LABS: Hemoglobin A1C 6.3 % (<5.7)
[2023-04-11 11:11] LABS: Hepatitis B Surface Antigen Negative (Negative)
[2023-04-11 11:17] LABS: HAV RESULT Negative (Negative); Hepatitis B Core IgM Result Negative (Negative)
[2023-04-11 11:28] LABS: Hepatitis C Virus Antibody Negative (Negative)
== END 2023-04-11 09:44 | disposition home or self-care (01) ==
LOC: ANHLAB 09:48
PROVIDERS: PCP Family Medicine; Visit Provider Family Medicine
DX: R73.03 Prediabetes (principal); F41.9 Anxiety disorder, unspecified; I10 Essential (primary) hypertension; K21.9 Gastro-esophageal reflux disease without esophagitis; N52.9 Male erectile dysfunction, unspecified; R74.01 Elevation of levels of liver transaminase levels; Z00.00 Encounter for general adult medical examination without abnormal findings; Z86.73 Personal history of transient ischemic attack (TIA), and cerebral infarction without residual deficits; Z95.1 Presence of aortocoronary bypass graft; I25.10 Atherosclerotic heart disease of native coronary artery without angina pectoris; M54.6 Pain in thoracic spine; M62.830 Muscle spasm of back; M62.838 Other muscle spasm; Z51.81 Encounter for therapeutic drug level monitoring
CPT/HCPCS: 36415; 80074; 80076; 83036; 85027

== ENCOUNTER 2023-04-24 08:29 | Outpatient (CLI) | payer MEDICARE, SELFPAY ==
--- NOTE | ~2023-04-24 | US_ITS ---
Limited Abdominal Sonogram: Real-time sonographic imaging of the right upper quadrant was performed. Clinical History: Abnormal LFTs Findings: The liver appears echogenic, with no evidence of mass lesion or bile duct dilatation. Prob able mildly nodular contour of liver. Main portal vein demonstrates normal direction of flow. The gal lbladder is well distended, and appears normal with no evidence of gallstone or wall thickening. The common bile duct measures 5 mm. The visualized pancreas, aorta, and IVC are unremarkable. Impression: Diffuse fatty infiltration of liver with possible cirrhotic change. Reviewed, dictated and finalized at location M. [employer] AR[employer]ANGER Impression: Diffuse fatty infiltration of liver with possible cirrhotic change.
== END 2023-04-24 08:30 | disposition home or self-care (01) ==
PROVIDERS: PCP Family Medicine; Visit Provider Family Medicine
DX: R74.01 Elevation of levels of liver transaminase levels (principal)
CPT/HCPCS: 76705

== ENCOUNTER 2023-07-18 09:00 | Outpatient (CLI) | payer MEDICARE, SELFPAY ==
[2023-07-18 10:21] LABS: Hemoglobin A1C 5.5 % (<5.7)
== END 2023-07-18 09:01 | disposition home or self-care (01) ==
LOC: ANHLAB 09:05
PROVIDERS: PCP Family Medicine; Visit Provider Family Medicine
DX: R73.03 Prediabetes (principal)
CPT/HCPCS: 36415; 83036

== ENCOUNTER 2023-10-24 09:31 | Outpatient (CLI) | payer MEDICARE, SELFPAY ==
--- NOTE | ~2023-10-24 | US_ITS ---
US abdomen limited INDICATION: Fatty infiltration of the liver PROCEDURE: Realtime right upper abdominal ultrasound. COMPARISON: No prior studies for comparison. FINDINGS: The pancreas is normal without focal mass or pancreatic ductal dilation. Liver echotexture is increased, consistent with fatty infiltration. There is normal directional flow in the portal ve in. There is gallbladder sludge. Common bile duct measures 3 mm. No sonographic Thomas's sign. IMPRESSION: 1: Fatty infiltration of the liver. 2: Gallbladder sludge. Reviewed, dictated and finalized at location B.
== END 2023-10-24 09:32 | disposition home or self-care (01) ==
LOC: ANHIMG 09:34
PROVIDERS: PCP Family Medicine; Visit Provider Family Medicine
DX: R93.2 Abnormal findings on diagnostic imaging of liver and biliary tract (principal); R73.03 Prediabetes; R74.01 Elevation of levels of liver transaminase levels; K76.0 Fatty (change of) liver, not elsewhere classified
CPT/HCPCS: 76705

== ENCOUNTER 2024-01-23 10:47 | Outpatient (CLI) | payer MEDICARE, SELFPAY ==
[2024-01-23 11:12] LABS: Basophils Percent Auto 0.5 % (0.2-1.2); Eosinophils Absolute Auto 0.1 K/mm3 (0-0.3); Eosinophils Percent Auto 1.1 % (0-4.4); Hematocrit 48.5 % (42.0-52.0); Hemoglobin 15.8 g/dL (14.0-18.0); Immature Granulocyte Absolute 0.04 K/mm3 (0.00-0.031); Immature Granulocyte Percent A 0.5 % (0-0.5); Lymphocytes Absolute Auto 1.63 K/mm3 (0.9-3.2); Lymphocytes Percent Auto 20.3 % (18.3-44.2); Mean Corpuscular HGB Conc 32.6 g/dl (32-36); Mean Corpuscular Hemoglobin 30.9 pg (26-34); Mean Corpuscular Volume 94.7 fl (80-100); Mean Platelet Volume 9.6 fl (7.4-10.4); Monocytes Absolute Auto 0.7 K/mm3 (0.1-0.6); Monocytes Percent Auto 8.1 % (2.6-8.5); Neutrophils Absolute Auto 5.6 K/mm3 (1.3-6.7); Neutrophils Percent Auto 69.5 % (45.5-73.1); Platelet Count Result 216 k/mm3 (150-375); Red Blood Count 5.12 M/mm3 (4.6-6.20); Red Cell Distribution Width 13.4 % (11.5-14.5)
[2024-01-23 11:20] LABS: Hemoglobin A1C 5.8 % (<5.7); Potassium 5.1 mmol/L (3.4-5.0); Sodium 138 mmol/L (137-145)
[2024-01-23 11:21] LABS: Alanine Aminotransferase 32 U/L (6-50); Albumin Level 4.9 g/dL (3.5-5.1); Alkaline Phosphatase 67 U/L (38-126); Anion Gap 9 mmol/L (4-12); Aspartate Amino Transferase 33 U/L (17-59); Bilirubin,Total 1.3 mg/dL (0.2-1.3); Blood Urea Nitrogen 10 mg/dL (9-20); Carbon Dioxide 31 mmol/L (22-30); Chloride 98 mmol/L (98-107); Estimated Glomerular Filt Rate > 60; Glucose 102 mg/dL (65-110)
== END 2024-01-23 10:48 | disposition home or self-care (01) ==
PROVIDERS: PCP Family Medicine; Visit Provider Family Medicine
DX: Z51.81 Encounter for therapeutic drug level monitoring (principal); R93.2 Abnormal findings on diagnostic imaging of liver and biliary tract; R73.03 Prediabetes; R74.01 Elevation of levels of liver transaminase levels; Z79.899 Other long term (current) drug therapy
CPT/HCPCS: 36415; 80053; 83036; 85025

== ENCOUNTER 2024-07-28 07:35 | Outpatient (CLI) | payer MEDICARE, SELFPAY ==
[2024-07-28 08:09] LABS: Hemoglobin 14.8 g/dL (14.0-18.0); Mean Corpuscular HGB Conc 32.2 g/dl (32-36); Mean Corpuscular Hemoglobin 30.5 pg (26-34); Mean Corpuscular Volume 94.8 fl (80-100); Mean Platelet Volume 10.3 fl (7.4-10.4); Platelet Count Result 200 k/mm3 (150-375); Red Blood Count 4.85 M/mm3 (4.6-6.20); Red Cell Distribution Width 12.9 % (11.5-14.5)
[2024-07-28 08:12] LABS: Alanine Aminotransferase 40 U/L (6-50); Albumin Level 4.7 g/dL (3.5-5.1); Alkaline Phosphatase 63 U/L (38-126); Anion Gap 10 mmol/L (4-12); Aspartate Amino Transferase 37 U/L (17-59); Blood Urea Nitrogen 12 mg/dL (9-20); Calcium 9.1 mg/dL (8.4-10.2); Carbon Dioxide 26 mmol/L (22-30); Chloride 97 mmol/L (98-107); Cholesterol 140 mg/dL (0-200); Estimated Glomerular Filt Rate > 60; Glucose 134 mg/dL (65-110); HDL Direct 50 mg/dL; Potassium 4.4 mmol/L (3.4-5.0); Sodium 133 mmol/L (137-145); Triglycerides 175 mg/dL (<150)
[2024-07-28 08:23] LABS: LDL Cholesterol Direct 56 mg/dL
[2024-07-28 08:43] LABS: Prostate Specific Antigen 2.5 ng/mL (< OR = 4.0)
[2024-07-28 10:28] LABS: Hemoglobin A1C 5.9 % (<5.7)
== END 2024-07-28 07:36 | disposition home or self-care (01) ==
PROVIDERS: PCP Family Medicine; Visit Provider Family Medicine
DX: R73.03 Prediabetes (principal); R74.01 Elevation of levels of liver transaminase levels; Z00.00 Encounter for general adult medical examination without abnormal findings; F41.9 Anxiety disorder, unspecified; Z95.1 Presence of aortocoronary bypass graft; K21.9 Gastro-esophageal reflux disease without esophagitis; Z86.73 Personal history of transient ischemic attack (TIA), and cerebral infarction without residual deficits; K75.81 Nonalcoholic steatohepatitis (NASH); Z12.5 Encounter for screening for malignant neoplasm of prostate
CPT/HCPCS: 36415; 80053; 80061; 83036; 84153; 85027; G0103

== ENCOUNTER 2025-02-02 09:21 | Outpatient (CLI) | payer MEDICARE, SELFPAY ==
[2025-02-02 10:24] LABS: Hematocrit 47.0 % (42.0-52.0); Hemoglobin 15.2 g/dL (14.0-18.0); Immature Granulocyte Percent A 0.7 % (0-0.5); Lymphocytes Absolute Auto 1.69 K/mm3 (0.9-3.2); Mean Corpuscular HGB Conc 32.3 g/dl (32-36); Mean Corpuscular Hemoglobin 30.3 pg (26-34); Mean Corpuscular Volume 93.6 fl (80-100); Nucleated Red Blood Cells Absolute Auto 0.000 K/mm3 (0.0-0.012); Nucleated Red Blood Cells Perc 0.0 % (0.0-0.2); Platelet Count Result 212 k/mm3 (150-375); Red Blood Count 5.02 M/mm3 (4.6-6.20); White Blood Count 8.8 K/mm3 (4.5-10.0)
[2025-02-02 10:42] LABS: Hemoglobin A1C 6.1 % (<5.7)
[2025-02-02 10:44] LABS: Alanine Aminotransferase 50 U/L (6-50); Albumin Level 4.8 g/dL (3.5-5.1); Alkaline Phosphatase 66 U/L (38-126); Anion Gap 7 mmol/L (4-12); Aspartate Amino Transferase 44 U/L (17-59); Bilirubin,Total 1.3 mg/dL (0.2-1.3); Blood Urea Nitrogen 8 mg/dL (9-20); Calcium 9.6 mg/dL (8.4-10.2); Carbon Dioxide 31 mmol/L (22-30); Chloride 94 mmol/L (98-107); Estimated Glomerular Filt Rate > 60; Glucose 106 mg/dL (65-110); Potassium 5.3 mmol/L (3.4-5.0); Sodium 132 mmol/L (137-145); Total Protein 7.9 g/dL (6.3-8.2)
[2025-02-02 11:39] LABS: Vitamin B12 510.0 pg/mL (239-931)
== END 2025-02-02 09:22 | disposition home or self-care (01) ==
PROVIDERS: PCP Family Medicine; Visit Provider Family Medicine
DX: Z79.899 Other long term (current) drug therapy (principal); F41.9 Anxiety disorder, unspecified; I10 Essential (primary) hypertension; Z95.1 Presence of aortocoronary bypass graft; E78.5 Hyperlipidemia, unspecified; R73.03 Prediabetes; K21.9 Gastro-esophageal reflux disease without esophagitis
CPT/HCPCS: 36415; 80053; 82306; 82607; 83036; 85025

== ENCOUNTER 2025-03-16 09:54 | Outpatient (CLI) | payer MEDICARE, SELFPAY ==
[2025-03-16 10:57] LABS: Anion Gap 6 mmol/L (4-12); Blood Urea Nitrogen 10 mg/dL (9-20); Calcium 9.5 mg/dL (8.4-10.2); Carbon Dioxide 29 mmol/L (22-30); Chloride 99 mmol/L (98-107); Estimated Glomerular Filt Rate > 60; Glucose 113 mg/dL (65-110); Potassium 4.6 mmol/L (3.4-5.0); Sodium 134 mmol/L (137-145)
== END 2025-03-16 09:55 | disposition home or self-care (01) ==
PROVIDERS: PCP Family Medicine; Visit Provider Family Medicine
DX: E87.5 Hyperkalemia (principal)
CPT/HCPCS: 36415; 80048